=== PATIENT | female | born 1950 | race Caucasian/White ===

== ENCOUNTER 2018-05-17 10:47 | Emergency (ER) | payer MEDICARE, MEDICAID ==
[~2018-05-17] VITALS: Ht 170.2 cm; Wt 58.2 kg
[2018-05-17] MEDS ORDERED: ketorolac trometh inj. 60 MG/2 ML VIAL IM ONE (11:45)
[2018-05-17] MEDS ORDERED: fentaNYL/PF 50MCG/1 ML 2ML syringe IM ONE (11:45)
[2018-05-17] MEDS ORDERED: ketorolac trometh. 30mg/ml inj. IM ONE (11:55)
[2018-05-17] MEDS ORDERED: CYCL-1 PO (13:50)
[2018-05-17 13:59] VITALS: BP 108/66
--- NOTE | 2018-05-17 14:04 | NUR ---
brothmaria esther fawn called for ride home.
== END 2018-05-17 14:00 | disposition home or self-care (01) ==
LOC: ER 10:48
DX: M54.2 Cervicalgia (principal); G89.29 Other chronic pain; M06.9 Rheumatoid arthritis, unspecified; Z88.0 Allergy status to penicillin; Z79.899 Other long term (current) drug therapy
CPT/HCPCS: 72125; 96372; 99284; J1885; J3010